=== PATIENT | female | born 1975 | race Hispanic/Latino ===

== ENCOUNTER 2018-03-15 08:21 | Emergency (ER) | payer OTHER ==
[~2018-03-15] VITALS: Ht 154.9 cm; Wt 82.6 kg
[~2018-03-15 08:21] MED LIST: LOSARTAN POTASS25 MG PO; METFORMIN HCL850 MG PO; NAPROSYN500 MG PO; TRULICITY SQ; TYLENOL WITH C1 EACH PO
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
--- NOTE | 2018-03-15 08:30 | NUR ---
Dr. Flores at bedside.
[2018-03-15] MEDS ORDERED: MORPHINE SULFATE 2 MG/ML SYR IV STA (08:42)
[2018-03-15] MEDS ORDERED: ONDANSETRON HCL INJ 2 MG/ML VIAL IV STA (08:42)
[2018-03-15] MEDS ORDERED: SODIUM CHLORIDE 0.9% 1000ML 1,000 ML IV STA (08:42)
[2018-03-15 08:57] LABS: BASOPHILS % 0.3 % (0.0-1.0); EOSINOPHILS # (AUTO) 0.1 (0.0-0.4); EOSINOPHILS % 1.5 % (0.0-6.0); HEMATOCRIT 33.4 % (34.2-44.1); HEMOGLOBIN 9.8 g/dL (12.0-16.0); LYMPHOCYTES # (AUTO) 1.6 (1.0-3.2); LYMPHOCYTES % 26.3 % (18.0-39.1); MEAN CORPUSCULAR HEMOGLOBIN 20.7 pg (28-32); MEAN CORPUSCULAR HGB CONC 29.3 g/dL (31-35); MEAN CORPUSCULAR VOLUME 70.5 fL (81-99); MONOCYTES # (AUTO) 0.4 (0.2-0.8); MONOCYTES % 5.9 % (4.4-11.3); NEUTROPHILS # (AUTO) 3.9 (2.1-6.9); NEUTROPHILS % 65.8 % (38.7-80.0); PLATELET COUNT 244 x10e3/uL (140-360); RED BLOOD COUNT 4.74 x10e6/uL (3.6-5.1); RED CELL DISTRIBUTION WIDTH 16.2 % (11.7-14.4)
[2018-03-15] MEDS ORDERED: MORPHINE SULFATE INJ 4 MG/ML INJ IV NR (09:00)
[2018-03-15 09:21] LABS: ALANINE AMINOTRANSFERASE 24 IU/L (0-55); ALBUMIN 3.9 g/dL (3.5-5.0); ALBUMIN/GLOBULIN RATIO 1.3 (0.8-2.0); ALKALINE PHOSPHATASE 110 IU/L (40-150); AMYLASE 30 U/L (25-125); ANION GAP 11.5 mmol/L (8-16); BLOOD UREA NITROGEN 8 mg/dL (7-26); BUN/CREATININE RATIO 11 (6-25); CALCIUM 8.9 mg/dL (8.4-10.2); CARBON DIOXIDE 26 mmol/L (22-29); CHLORIDE 105 mmol/L (98-107); CREATININE, SERUM 0.74 mg/dL (0.57-1.11); EST GLOMERULAR FILTRATION RATE > 60 ML/MIN (60-); GLUCOSE 140 mg/dL (74-118); LIPASE 14 U/L (8-78); POTASSIUM 3.5 mmol/L (3.5-5.1); SODIUM 139 mmol/L (136-145)
[2018-03-15 09:41] LABS: BILIRUBIN,URINE NEGATIVE (NEGATIVE); CLARITY,URINE SL CLOUDY (CLEAR); COLOR,URINE YELLOW (YELLOW); KETONES,URINE NEGATIVE (NEGATIVE); LEUKOCYTE ESTERASE ,URINE NEGATIVE (NEGATIVE); NITRITE,URINE NEGATIVE (NEGATIVE); PROTEIN,URINE DIPSTICK NEGATIVE (NEGATIVE); URINE UROBILINOGEN 0.2 mg/dL (0.2 - 1)
[2018-03-15] MEDS ORDERED: BELLADONNA ALK/PHENOBARBITAL 5 ML UDC PO STA (09:48)
[2018-03-15 09:59] LABS: BACTERIA,URINE FEW /HPF; EPITHELIAL CELLS,URINE FEW /LPF
[2018-03-15] MEDS ORDERED: MAGNESIUM/ALUMINUM/SIMETHICONE 30 ML UDC PO ONE (10:00)
[2018-03-15] MEDS ORDERED: LIDOCAINE VISC 2% SOLN 15 ML UDC PO ONE (10:00)
[2018-03-15] MEDS ORDERED: SODIUM CHLORIDE 0.9% 1000ML 1,000 ML IV SCH (11:30)
[2018-03-15 11:49] VITALS: BP 145/84
== END 2018-03-15 12:00 | disposition home or self-care (01) ==
LOC: ER 08:21
DX: R10.11 Right upper quadrant pain (principal); R10.13 Epigastric pain; R11.2 Nausea with vomiting, unspecified; R19.7 Diarrhea, unspecified; K29.01 Acute gastritis with bleeding; I10 Essential (primary) hypertension; E11.9 Type 2 diabetes mellitus without complications; D64.9 Anemia, unspecified; D50.0 Iron deficiency anemia secondary to blood loss (chronic)
CPT/HCPCS: 36415; 80053; 81001; 82150; 83690; 85025; 93005; 99284; J2270; J2405; J7030

== ENCOUNTER 2020-11-12 10:22 | Emergency (ER) | payer OTHER ==
[~2020-11-12] VITALS: Ht 154.9 cm; Wt 82.6 kg
[2020-11-12] MEDS ORDERED: VICODIN HP 10-1 EAC1 PO (10:45)
[2020-11-12] MEDS ORDERED: MORPHINE SULFATE INJ 4 MG/ML INJ 1ML IM PRN (10:45)
[2020-11-12] MEDS ORDERED: ONDANSETRON ODT4 MG PO (10:45)
[2020-11-12] MEDS ORDERED: HYDROCODON-ACE1 EAC9 PO (11:39)
== END 2020-11-12 11:02 | disposition home or self-care (01) ==
LOC: ER 10:35
DX: M54.5 Low back pain (principal); N12 Tubulo-interstitial nephritis, not specified as acute or chronic; I10 Essential (primary) hypertension; E11.9 Type 2 diabetes mellitus without complications
CPT/HCPCS: 99283; J2270

== ENCOUNTER 2021-11-04 15:43 | Observation (INO) | payer OTHER ==
[~2021-11-04] VITALS: Ht 154.9 cm; Wt 79.4 kg
[~2021-11-04 15:43] MED LIST changes: +HYDROCODON-ACE1 EAC9 PO; +ONDANSETRON ODT4 MG PO; +VICODIN HP 10-1 EAC1 PO
[2021-11-04 16:50] VITALS: BP 134/66
[2021-11-04] MEDS ORDERED: OZEMPIC0.25 MG/0. SC (16:59)
[2021-11-04] MEDS ORDERED: SINJARDY PO (16:59)
[2021-11-04] MEDS ORDERED: XANAX1 MG PO (16:59)
[2021-11-04 17:08] LABS: CREATINE KINASE 27 IU/L (29-168)
[2021-11-04] MEDS ORDERED: DEXTROSE 50% SYRINGE 50 ML IV PRN (17:15)
[2021-11-04] MEDS ORDERED: OZEMPIC 1 MG SC SCH (17:15)
[2021-11-04] MEDS ORDERED: ALPRAZOLAM 1 MG TAB PO PRN (17:15)
[2021-11-04] MEDS: INSULIN REGULAR, HUMAN 100 UNIT/1 ML SQ SCH ×2 (18:18→21:08)
[2021-11-04] MEDS ORDERED: SINJARDY PO SCH (21:00)
[2021-11-04 21:07] VITALS: BP 132/76
[2021-11-04] MEDS: TRAMADOL HCL 50 MG TAB PO PRN (22:15)
[2021-11-05 00:21] VITALS: BP 141/75
[2021-11-05 00:35] LABS: CREATINE KINASE 28 IU/L (29-168)
[2021-11-05 03:48] VITALS: BP 133/67
[2021-11-05] MEDS ORDERED: KETOROLAC TROMETHAMINE 30 MG/ML VIAL IV STA (04:03)
[2021-11-05 05:00] LABS: BASOPHILS % 0.7 % (0.0-1.0); EOSINOPHILS # (AUTO) 0.1 (0.0-0.4); EOSINOPHILS % 2.6 % (0.0-6.0); HEMATOCRIT 30.5 % (34.2-44.1); HEMOGLOBIN 8.3 g/dL (12.0-16.0); LYMPHOCYTES # (AUTO) 1.6 (1.0-3.2); LYMPHOCYTES % 37.2 % (18.0-39.1); MEAN CORPUSCULAR HEMOGLOBIN 18.1 pg (28-32); MEAN CORPUSCULAR HGB CONC 27.2 g/dL (31-35); MEAN CORPUSCULAR VOLUME 66.4 fL (81-99); MONOCYTES # (AUTO) 0.4 (0.2-0.8); MONOCYTES % 10.3 % (4.4-11.3); NEUTROPHILS # (AUTO) 2.1 (2.1-6.9); PLATELET COUNT 199 x10e3/uL (140-360); RED BLOOD COUNT 4.59 x10e6/uL (3.6-5.1); RED CELL DISTRIBUTION WIDTH 18.7 % (11.7-14.4)
[2021-11-05 05:20] LABS: ALBUMIN 3.3 g/dL (3.5-5.0); ANION GAP 13.6 mmol/L (8-16); CREATININE, SERUM 0.66 mg/dL (0.57-1.11); MAGNESIUM 1.7 MG/DL (1.3-2.1); POTASSIUM 3.6 mmol/L (3.5-5.1)
[2021-11-05 08:56] VITALS: BP 122/62
[2021-11-05 08:57] VITALS: BP 122/62
[2021-11-05] MEDS ORDERED: LOSARTAN POTASSIUM 25 MG TAB PO SCH (09:00)
[2021-11-05] MEDS: INSULIN REGULAR, HUMAN 100 UNIT/1 ML SQ SCH ×2 (09:33→12:26)
[2021-11-05 09:47] LABS: CREATINE KINASE 24 IU/L (29-168)
[2021-11-05 12:00] VITALS: BP 123/62
[2021-11-05] MEDS: TRAMADOL HCL 50 MG TAB PO PRN (12:24)
[2021-11-05 15:59] VITALS: BP 137/71
== END 2021-11-05 17:06 | disposition home or self-care (01) ==
LOC: INTOOBSV 15:43 → MED/SURG 15:43
PROVIDERS: ADMIT Internal Medicine; ATTEND Internal Medicine
DX: R07.89 Other chest pain (principal); E11.9 Type 2 diabetes mellitus without complications; I10 Essential (primary) hypertension; F41.9 Anxiety disorder, unspecified; E66.9 Obesity, unspecified; Z68.33 Body mass index [BMI] 33.0-33.9, adult; R13.10 Dysphagia, unspecified; D64.9 Anemia, unspecified; D50.9 Iron deficiency anemia, unspecified; Z20.822 Contact with and (suspected) exposure to COVID-19; Z82.49 Family history of ischemic heart disease and other diseases of the circulatory system
CPT/HCPCS: 36415 ×2; 80053; 82550 ×2; 82553 ×2; 82948 ×2; 83735; 84484 ×2; 85025; 93005 ×2; 93306; 96372; G0378 ×2; J1817; J1885; U0002

== ENCOUNTER 2022-06-10 09:05 | Emergency (ER) | payer OTHER ==
[~2022-06-10] VITALS: Ht 154.9 cm; Wt 79.4 kg
[~2022-06-10 09:05] MED LIST changes: +OZEMPIC0.25 MG/0. SC; +SINJARDY PO; +XANAX1 MG PO
[2022-06-10] MEDS ORDERED: CYCLOBENZAPRINE10 MG PO (09:21)
== END 2022-06-10 09:29 | disposition home or self-care (01) ==
LOC: ER 09:11
DX: S16.1XXA Strain of muscle, fascia and tendon at neck level, initial encounter (principal); M25.512 Pain in left shoulder; I10 Essential (primary) hypertension; E11.9 Type 2 diabetes mellitus without complications; F41.9 Anxiety disorder, unspecified
CPT/HCPCS: 99282